=== PATIENT | male | born 1955 | race Caucasian/White ===

== ENCOUNTER 2023-06-27 12:09 | Inpatient (IN) ==
[2023-06-27 12:43] LABS: Basophils # (auto) 0.06 K/uL (0.00-0.20); Basophils % (auto) 1.2 %; Eosinophils # (auto) 0.34 K/uL (0.00-0.50); Eosinophils % (auto) 6.5 %; Hematocrit (blood only) 42.6 % (42.0-52.0); Hemoglobin 14.1 g/dl (14.0-18.0); Immature Granulocytes # (auto) 0.02 K/uL (0.01-0.20); Immature Granulocytes % (auto) 0.4 %; Lymphocytes # (auto) 1.31 K/uL (1.20-3.40); Lymphocytes % (auto) 25.2 %; Mean Corpuscular Hemoglobin 28.7 pg (25.0-34.0); Mean Corpuscular Hgb Conc 33.1 g/dL (32.0-36.0); Mean Corpuscular Volume 86.8 fL (80.0-100.0); Mean Platelet Volume 9.5 fL (9.4-12.4); Monocytes % (auto) 17.3 %; Neutrophils # (auto) 2.57 K/uL (1.40-6.50); Neutrophils % (auto) 49.4 %; Platelet Count 207 K/uL (130-400); RDW Coefficient of Variation 12.7 % (11.5-14.5); RDW Standard Deviation 40.1 fL (36.4-46.3); Red Blood Count 4.91 M/uL (4.70-6.10)
[2023-06-27 13:01] LABS: Alanine Aminotransferase 29 U/L (7-52); Albumin Globulin Ratio 1.7 (0.9-2); Albumin Level 4.5 gm/dl (3.4-5.0); Alkaline Phosphatase 81 U/L (34-104); Anion Gap 7 (3-11); Aspartate Aminotransferase 22 U/L (13-39); BUN Creatinine Ratio 14.3 (10-20); Bilirubin,Total 0.4 mg/dl (0.2-1.0); Blood Urea Nitrogen 15 mg/dl (6-23); Calcium 9.5 mg/dl (8.6-10.3); Carbon Dioxide 28 mmol/L (21-32); Chloride 103 mmol/L (98-107); Est GFR (African American) 84.7 ml/min; Est GFR (Non-African American) 73.1 ml/min; Globulin 2.7 gm/dl (2.5-4.0); Glucose 121 mg/dl (70-99(Fasting)); Lipase 22 U/L (11-82); Potassium 4.2 mmol/L (3.5-5.1); Sodium 138 mmol/L (136-145); Total Protein 7.2 gm/dl (6.0-8.3)
--- NOTE | 2023-06-27 13:55 | Emergency Department Note ---
ED Provider Note History of Present Illness Chief Complaint: Abdominal Pain Time Seen by Provider: 06/27/23 13:54 History obtained from the patient as well as his who is on the phone. This is a 67-year-old male who presents to the emergency department with 1 week of upper abdominal pain, vomiting after eating, decreased oral intake, generalized weakness, and concerned about falls. Patient states that he has pain in his upper abdomen region anytime he tries to eat. Sometimes this triggers him to vomit. He has not wanted to eat very much or drink fluids recently. At times he can feel like there is food getting caught in his chest. His thinks he is generally weak and he fell over about a week ago which concerned her. Patient states that he has been told by neurology that he has ataxia. states that he has been coughing more in the evening and at nighttime. Patient does not have any history of reflux that he is aware of. Patient has not had any abdominal surgeries. No shortness of breath or chest pain. No headaches. No vision changes. Aside from the dizziness, patient states that the above symptoms are new, no history of something like this in the past. Home Medications Medication Instructions Recorded Confirmed Type bupropion HCl 300 mg 24 hr tablet, 300 mg PO QAM 12/02/22 06/27/23 History extended release fluticasone propionate 50 1 spray intranasal DAILY 12/02/22 06/27/23 History mcg/actuation nasal spray,suspension loratadine 10 mg tablet (Allergy 10 mg PO DAILY 12/02/22 06/27/23 History Relief (loratadine)) methylphenidate HCl 5 mg tablet 5 mg PO BID 12/02/22 06/27/23 History metoprolol tartrate 50 mg tablet 50 mg PO BID 12/02/22 06/27/23 History omega 1-nji-ozj-fish oil 1,000 mg 1 cap PO DAILY 12/02/22 06/27/23 History (120 mg-180 mg) capsule (Fish Oil) potassium chloride 20 mEq 20 meq PO DAILY 12/02/22 06/27/23 History tablet,extended release sertraline 100 mg tablet 100 mg PO DAILY 12/02/22 06/27/23 History simvastatin 40 mg tablet 40 mg PO QPM 12/02/22 06/27/23 History tadalafil 20 mg tablet 20 mg PO DAILY PRN Sexual Activity 12/02/22 06/27/23 History Allergies Allergy/AdvReac Type Severity Reaction Status Date / Time No Known Allergies Allergy Verified 06/27/23 14:32 Past Med/Surg History Social History Smoking Status: Never smoker Hx Alcohol Use: No Hx Substance Use: No Preferred Language: Burkinan Communication Ability: Effective [employer]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 Beliefs That Will Affect Care: None Current Living Situation: Spouse Current Living Situation Comment: home with Feels Safe at Home: Yes Assistive Devices: CPAP, Denture - Upper, Denture - Lower, Glasses and Hearing Aid - Bilateral Physical Exam Vital Signs Vital Signs - 24 hr 06/27/23 12:15 06/27/23 14:02 06/27/23 14:26 Temperature 97.9 F Temperature Source Temporal Artery Scan Pulse Rate 60 54 L Pulse Rate [Apical] 60 Pulse Rhythm [Apical] Regular Pulse Strength [Apical] Normal Respiratory Rate 18 19 Respiratory Effort / Characteristics Non-Labored Spontaneous Non-Labored Spontaneous Respiratory Depth Normal Normal Respiratory Pattern Regular Regular Blood Pressure 121/79 Blood Pressure [Right Arm] 134/80 Blood Pressure Mean 93 Blood Pressure Mean [Right Arm] 98 Blood Pressure Position Sitting Pulse Oximetry 93 93 Oxygen Delivery Method Room Air Room Air Sepsis Recent Fever Within 48 Hours No Sepsis New/Unexplained Change in Mental Status N/A Sepsis Action Taken by Nursing No Action Required 06/27/23 15:00 06/27/23 15:04 06/27/23 15:30 Temperature Temperature Source Pulse Rate 54 L 57 L 56 L Pulse Rate [Apical] Pulse Rhythm [Apical] Pulse Strength [Apical] Respiratory Rate 13 26 H 24 Respiratory Effort / Characteristics Respiratory Depth Respiratory Pattern Blood Pressure 130/78 128/85 132/84 Blood Pressure [Right Arm] Blood Pressure Mean 95 99 100 Blood Pressure Mean [Right Arm] Blood Pressure Position Pulse Oximetry Oxygen Delivery Method Sepsis Recent Fever Within 48 Hours Sepsis New/Unexplained Change in Mental Status Sepsis Action Taken by Nursing 06/27/23 16:00 06/27/23 16:30 06/27/23 17:00 Temperature Temperature Source Pulse Rate 63 55 L 58 L Pulse Rate [Apical] Pulse Rhythm [Apical] Pulse Strength [Apical] Respiratory Rate 18 15 19 Respiratory Effort / Characteristics Respiratory Depth Respiratory Pattern Blood Pressure 127/88 133/87 130/87 Blood Pressure [Right Arm] Blood Pressure Mean 101 102 101 Blood Pressure Mean [Right Arm] Blood Pressure Position Pulse Oximetry Oxygen Delivery Method Sepsis Recent Fever Within 48 Hours Sepsis New/Unexplained Change in Mental Status Sepsis Action Taken by Nursing 06/27/23 17:30 06/27/23 18:00 06/27/23 18:30 Temperature Temperature Source Pulse Rate 55 L 53 L 57 L Pulse Rate [Apical] Pulse Rhythm [Apical] Pulse Strength [Apical] Respiratory Rate 17 12 18 Respiratory Effort / Characteristics Respiratory Depth Respiratory Pattern Blood Pressure 121/87 128/80 135/85 Blood Pressure [Right Arm] Blood Pressure Mean 98 96 101 Blood Pressure Mean [Right Arm] Blood Pressure Position Pulse Oximetry Oxygen Delivery Method Sepsis Recent Fever Within 48 Hours Sepsis New/Unexplained Change in Mental Status Sepsis Action Taken by Nursing 06/27/23 18:33 06/27/23 19:00 Temperature Temperature Source Pulse Rate 54 L 54 L Pulse Rate [Apical] Pulse Rhythm [Apical] Pulse Strength [Apical] Respiratory Rate 18 Respiratory Effort / Characteristics Respiratory Depth Respiratory Pattern Blood Pressure 144/123 H Blood Pressure [Right Arm] Blood Pressure Mean 130 Blood Pressure Mean [Right Arm] Blood Pressure Position Pulse Oximetry Oxygen Delivery Method Sepsis Recent Fever Within 48 Hours Sepsis New/Unexplained Change in Mental Status Sepsis Action Taken by Nursing CONSTITUTIONAL: Well developed, well nourished, in no acute distress resting comfortably on the stretcher. EYES: conjunctivae normal, extraocular muscles intact. ENMT: External ears normal. Nose with normal external appearance, no congestion. Oral mucous membranes moist. Oropharynx normal. NECK: Full active range of motion. RESPIRATORY: Breathing unlabored and symmetric. Lungs clear to auscultation bilaterally. No wheeze, rales, or rhonchi. CARDIOVASCULAR: Regular rate and rhythm. No murmurs, rubs, or gallops. CHEST: Minimal tenderness in the lower sternal region. ABDOMEN: Normal bowel sounds. Soft, mild tenderness in the umbilicus and epigastric regions. No peritonitis. No CVA tenderness bilaterally. MUSCULOSKELETAL: Moves all extremities at all joints without pain or difficulty. No cyanosis or edema. Back with full range of motion. SKIN: [place], warm, dry. NEUROLOGIC: Awake, alert, oriented. Gaze is conjugate. Face symmetric, speech normal. Moves head and all four extremities spontaneously. Sensation and strength grossly intact. PSYCHIATRIC: Appropriate. Normal affect Course Administered Medications Lactated Ringer's (Lr) 1,000 mls @ 80 mls/hr IV .[id number] RAJAN Stop: 06/29/23 09:59 Last Admin: 06/27/23 21:39 Dose: 80 mls/hr Documented By: JULIETTE Methylphenidate HCl (Methylphenidate Hcl 5 Mg Tablet) 5 mg PO BID RAJAN Stop: 07/11/23 21:21 Last Admin: 06/27/23 23:05 Dose: 5 mg Documented By: JULIETTE Metoprolol Tartrate (Metoprolol Tartrate 50 Mg Tab) 50 mg PO BID RAJAN Stop: 07/27/23 21:21 Last Admin: 06/27/23 23:05 Dose: 50 mg Documented By: JULIETTE Simvastatin (Simvastatin 40 Mg Tab) 40 mg PO QPM RAJAN Stop: 07/27/23 21:21 Last Admin: 06/27/23 23:05 Dose: 40 mg Documented By: JULIETTE Discontinued Medications Famotidine (Pepcid 20mg Iv Push) 20 mg in 5 mls @ 2.5 mls/min IV NOW STA Stop: 06/27/23 14:15 Last Admin: 06/27/23 14:24 Dose: 2.5 mls/min Documented By: SHAUNA Sodium Chloride (Nss) 500 mls @ 999 mls/hr IV .Q31M ONE Stop: 06/27/23 14:44 Last Infusion: 06/27/23 15:58 Dose: Infused Documented By: [facility]: 06/27/23 14:24 Dose: 999 mls/hr Documented By: SHAUNA Pantoprazole Sodium 40 mg/ (Syringe) 10 mls @ 5 mls/min IV NOW ONE Stop: 06/27/23 17:52 Last Admin: 06/27/23 18:26 Dose: 5 mls/min Documented By: JENNYFER Ioversol (Optiray 320 100ml) 91 ml IV ONCE ONE Stop: 06/27/23 14:56 Last Admin: 06/27/23 14:46 Dose: 91 ml Documented By: KIMBER Ondansetron HCl (Ondansetron Inj 2 Mg/Ml 2 Ml Vial) 4 mg IV NOW STA Stop: 06/27/23 14:15 Last Admin: 06/27/23 14:24 Dose: 4 mg Documented By: SHAUNA Medical Decision Making Differential Diagnosis Pancreatitis, GERD, esophagitis, reflux, peptic ulcer disease, esophageal stricture, cholecystitis, cholelithiasis, pneumonia, malignancy, effusion, electrolyte imbalance, anemia, doubt CHF, vertigo, ataxia, mass, hydrocephalus, among other pathology Laboratory Data 06/27/23 12:25 06/27/23 12:25 Lab Results 06/27/23 06/27/23 Range/Units 12:25 16:05 WBC 5.20 (4.8-10.8) K/ul RBC 4.91 (4.70-6.10) M/uL Hgb 14.1 (14.0-18.0) g/dl Hct 42.6 (42.0-52.0) % MCV 86.8 (80.0-100.0) fL MCH 28.7 (25.0-34.0) pg MCHC 33.1 (32.0-36.0) g/dL RDW Std Deviation 40.1 (36.4-46.3) fL RDW Coeff of Johanna 12.7 (11.5-14.5) % Plt Count 207 (130-400) K/uL MPV 9.5 (9.4-12.4) fL Immature Gran % (Auto) 0.4 % Neut % (Auto) 49.4 % Lymph % (Auto) 25.2 % Beckham % (Auto) 17.3 % Eos % (Auto) 6.5 % Baso % (Auto) 1.2 % Neut # (Auto) 2.57 (1.40-6.50) K/uL Lymph # (Auto) 1.31 (1.20-3.40) K/uL Beckham # (Auto) 0.90 H (0.11-0.59) K/uL Eos # (Auto) 0.34 (0.00-0.50) K/uL Baso # (Auto) 0.06 (0.00-0.20) K/uL Immature Gran # (Auto) 0.02 (0.01-0.20) K/uL Sodium 138 (136-145) mmol/L Potassium 4.2 (3.5-5.1) mmol/L Chloride 103 (98-107) mmol/L Carbon Dioxide 28 (21-32) mmol/L Anion Gap 7 (3-11) BUN 15 (6-23) mg/dl Creatinine 1.05 (0.6-1.4) mg/dl Est Cr Clr Drug Dosing Not Reportable Est GFR ( Amer) 84.7 ml/min Est GFR (Non-Af Amer) 73.1 ml/min BUN/Creatinine Ratio 14.3 (10-20) Glucose 121 H (70-99(Fasting)) mg/dl Calcium 9.5 (8.6-10.3) mg/dl Total Bilirubin 0.4 (0.2-1.0) mg/dl AST 22 (13-39) U/L ALT 29 (7-52) U/L Alkaline Phosphatase 81 (34-104) U/L Troponin I High Sens 2.5 (0-20) pg/ml Total Protein 7.2 (6.0-8.3) gm/dl Albumin 4.5 (3.4-5.0) gm/dl Globulin 2.7 (2.5-4.0) gm/dl Albumin/Globulin Ratio 1.7 (0.9-2) Lipase 22 (11-82) U/L Urine Color Yellow Urine Appearance Clear (Clear) Urine pH 5.5 (4.5-7.5) Ur Specific Bath > 1.045 H (1.000-1.030) Urine Protein Negative (Negative) Urine Glucose (UA) Negative (Negative) Urine Ketones Negative (Negative) Urine Blood Negative (Negative) Urine Nitrite Negative (Negative) Urine Bilirubin Negative (Negative) Urine Urobilinogen Negative (Negative) Ur Leukocyte Esterase Negative (Negative) Imaging Data Radiologist's Impression: Abdomen/Pelvis CT 06/27/23 14:[address] WITH IV CONTRAST CT DOSE: 3284.72 mGy.cm HISTORY: Acute epigastric abdominal pain with nausea and vomiting epigastric pain w eating, vomiting after food TECHNIQUE: Multiaxial CT images of the abdomen and pelvis were performed following the IV administration of 91 cc of Optiray, A dose lowering technique was utilized adhering to the principles of ALARA. COMPARISON STUDY: Chest CT of same day FINDINGS: Coronary artery calcifications. [id number] distal esophageal wall thickening with adjacent inflammatory stranding and subcentimeter lymph nodes. Mild bibasilar atelectasis versus scarring. No free air. Unremarkable spleen, pancreas and adrenal glands. The gallbladder and liver appear unremarkable. Patency of the hepatic and portal veins. No hydronephrosis. There are a few scattered bilateral renal cysts. 7 mm nonobstructing calculus of the inferior pole left kidney. No ureteral calculi or hydronephrosis. Prostatomegaly. Decompressed urinary bladder with wall thickening. Small fat filled left greater than right inguinal hernias with probable bilateral varicoceles. No abdominal aortic aneurysm or pathologically enlarged lymph nodes. No bowel obstruction or bowel wall thickening. Colonic diverticulosis. Mild to moderate colonic fecal retention. Normal appendix. Tiny fat filled umbilical hernia. Multilevel annular disc bulging of the lumbar spine with associated central canal and neural foraminal narrowing. No acute fracture. IMPRESSION: 1. Findings suggestive of distal esophagitis. Correlation with GI consult and endoscopy recommended. 2. No bowel obstruction or bowel wall thickening. 3. Colonic diverticulosis. 4. Left nephrolithiasis. 5. Additional findings as above. ACT 112: Negative or not required by law. The above report was generated using voice recognition software. It may contain grammatical, syntax or spelling errors. Electronically signed by: Mert Andrea M.D. 06/27/2023 3:[address] 06/27/23 14:[address] WITH CONTRAST CT DOSE: HISTORY: epigastric pain w eating, vomiting after food TECHNIQUE: Multiaxial CT images of the chest were performed following the intravenous administration of contrast. A dose lowering technique was utilized adhering to the principles of ALARA. COMPARISON: None. FINDINGS: The thyroid gland enhances normally. Normal caliber thoracic aorta with no evidence for a dissection. The central pulmonary arteries are patent. The heart is normal in size. Mild coronary artery calcifications are noted. No pleural or pericardial effusions. The abdominal structures will be reported on the same day abdomen and pelvis CT. There is mild to moderate circumferential thickening of the distal esophagus. No paraesophageal lymphadenopathy identified. Subcentimeter mediastinal and bilateral hilar lymph nodes do not meet CT criteria for pathologic involvement. No suspicious lytic or blastic osseous lesions. No evidence for pneumomediastinum. No pneumothorax. The central airways are patent. Mild dependent changes seen within the lung bases. Otherwise, no focal lung consolidations to suggest a pneumonia. No evidence for pulmonary edema. IMPRESSION: Mild to moderate circumferential thickening of the distal esophagus. This favors an esophagitis. Follow-up nonemergent endoscopy recommended for confirmation. ACT 112: Negative or not required by law. Electronically signed by: Farhad Sargent M.D. 06/27/2023 3:[address] 06/27/23 14:22 CT head/brain wo con CLINICAL HISTORY: 67 years-old Male with recent falls, weakness. Acute head trauma status post fall TECHNIQUE: Multiple axial CT images of the head were obtained without contrast. A dose lowering technique was utilized adhering to the principles of ALARA. COMPARISON: None. FINDINGS: No acute intracranial hemorrhage, midline shift, intracranial mass, hydrocephalus, territorial ischemia or abnormal extra-axial collection. Calcifications of the falx cerebri. Involutional changes with chronic microvascular ischemic disease. Right frontal lobe encephalomalacia with cortical calcifications. The calvarium is intact. Minimal mucosal thickening of the ethmoid air cells. Prior bilateral lens repair. Trace mastoid effusions. IMPRESSION: 1. No acute intracranial abnormality or calvarial fracture. 2. Involutional changes with chronic microvascular ischemic disease. 3. Right frontal lobe encephalomalacia. ACT 112: Negative or not required by law. The above report was generated using voice recognition software. It may contain grammatical, syntax or spelling errors. Electronically signed by: Mert Andrea M.D. 06/27/2023 3:15 PM MDM Narrative This is a 67-year-old male who presents to the emergency department with multiple symptoms over the past week including upper abdominal discomfort, pain in his epigastric region when he eats or drinks and some vomiting after eating. Also with a cough at nighttime, concerned about generalized weakness and several falls recently. See above for further details. Patient resting comfortably on the stretcher. O2 saturation 93% on room air, history of similar. Remainder of vitals are unremarkable. He has some very minimal discomfort in the central epigastric region though no focal tenderness. Case reviewed with ED attending Dr. Bejarano. IV was inserted and labs were obtained. Patient was given Zofran and Pepcid and gentle IV fluids. CT head, chest, abdomen pelvis obtained. EKG: Sinus rhythm rate of 63. First-degree AV block AK interval 222. Remainder of intervals within normal limits. No prior to compare. No acute ST elevation or evidence of ischemia. Labs: No leukocytosis or anemia. Normal renal function. No electrolyte disturbance. No transaminitis. Troponin normal. CT head demonstrates some chronic changes, reviewed with Dr. Bejarano. CT abdomen pelvis shows thickening of the distal esophagus consistent with esophagitis. Clinically this does match the patient's symptoms as described above. I called and spoke with Dr. Mullins (gastroenterology on-call) who agrees the patient will require an EGD and recommends a PPI. Given the patient's ongoing symptoms with generalized weakness, inability to tolerate p.o., will admit him to the hospitalist with GI consult. Patient comfortable with this plan. Case reviewed with ED attending Dr. Bejarano who is agreeable with this plan. Spoke with Dr. Rajan (hospitalist, [facility]) who agrees to admit the patient. Impression Esophagitis, Generalized weakness Discharge Plan Visit Data Chief Complaint: Abdominal Pain ED Provider: Jatinder Bejarano ED Midlevel Provider: Manish Lal Discharge Problem: Esophagitis, Generalized weakness Patient Disposition: Admitted As Inpatient Condition: Good Discharge Instructions Interventions: ED Discharge Assessment Last Done: 06/27/23 22:17
[2023-06-27] MEDS: ONDANSETRON INJ 2 MG/ML 2 ML VIAL IV STA (14:24)
[2023-06-27] MEDS: FAMOTIDINE 20MG IV PUSH 20 MG/5 ML SYR IV STA (14:24)
[2023-06-27] MEDS: SODIUM CHLORIDE 0.9% 500 ML IV ONE (14:24)
[2023-06-27 14:28] LABS: Troponin I High Sensitivity 2.5 pg/ml (0-20)
[2023-06-27] MEDS: OPTIRAY 320 100ml IV ONE (14:46)
--- NOTE | 2023-06-27 15:17 | CT Scan Report ---
CHEST CT WITH CONTRAST CT DOSE: HISTORY: epigastric pain w eating, vomiting after food TECHNIQUE: Multiaxial CT images of the chest were performed following the intravenous administration of contrast. A dose lowering technique was utilized adhering to the principles of ALARA. COMPARISON: None. FINDINGS: The thyroid gland enhances normally. Normal caliber thoracic aorta with no evidence for a d issection. The central pulmonary arteries are patent. The heart is normal in size. Mild coronary ernst ry calcifications are noted. No pleural or pericardial effusions. The abdominal structures will be re ported on the same day abdomen and pelvis CT. There is mild to moderate circumferential thickening of the distal esophagus. No paraesophageal lymphadenopathy identified. Subcentimeter mediastinal and bi lateral hilar lymph nodes do not meet CT criteria for pathologic involvement. No suspicious lytic or blastic osseous lesions. No evidence for pneumomediastinum. No pneumothorax. The central airways are patent. Mild dependent changes seen within the lung bases. Otherwise, no focal lung consolidations to suggest a pneumonia. No evidence for pulmonary edema. IMPRESSION: Mild to moderate circumferential thickening of the distal esophagus. This favors an esophagitis. Foll ow-up nonemergent endoscopy recommended for confirmation. ACT 112: Negative or not required by law. Electronically signed by: Farhad Sargent M.D. 06/27/2023 3:16 PM
--- NOTE | 2023-06-27 15:17 | CT Scan Report ---
CT head/brain wo con CLINICAL HISTORY: 67 years-old Male with recent falls, weakness. Acute head trauma status post fall TECHNIQUE: Multiple axial CT images of the head were obtained without contrast. A dose lowering tech nique was utilized adhering to the principles of ALARA. COMPARISON: None. FINDINGS: No acute intracranial hemorrhage, midline shift, intracranial mass, hydrocephalus, territorial ischem ia or abnormal extra-axial collection. Calcifications of the falx cerebri. Involutional changes with chronic microvascular ischemic disease. Right frontal lobe encephalomalacia with cortical calcificati ons. The calvarium is intact. Minimal mucosal thickening of the ethmoid air cells. Prior bilateral lens r epair. Trace mastoid effusions. IMPRESSION: 1. No acute intracranial abnormality or calvarial fracture. 2. Involutional changes with chronic microvascular ischemic disease. 3. Right frontal lobe encephalomalacia. ACT 112: Negative or not required by law. The above report was generated using voice recognition software. It may contain grammatical, syntax o r spelling errors. Electronically signed by: Mert Andrea M.D. 06/27/2023 3:15 PM
--- NOTE | 2023-06-27 15:30 | CT Scan Report ---
ABDOMEN AND PELVIS CT WITH IV CONTRAST CT DOSE: 3284.72 mGy.cm HISTORY: Acute epigastric abdominal pain with nausea and vomiting epigastric pain w eating, vomiting after food TECHNIQUE: Multiaxial CT images of the abdomen and pelvis were performed following the IV administrat ion of 91 cc of Optiray, A dose lowering technique was utilized adhering to the principles of ALARA. COMPARISON STUDY: Chest CT of same day FINDINGS: Coronary artery calcifications. [id number] distal esophageal wall thickening with adj acent inflammatory stranding and subcentimeter lymph nodes. Mild bibasilar atelectasis versus scarrin g. No free air. Unremarkable spleen, pancreas and adrenal glands. The gallbladder and liver appear unremarkable. Luke ncy of the hepatic and portal veins. No hydronephrosis. There are a few scattered bilateral renal cys ts. 7 mm nonobstructing calculus of the inferior pole left kidney. No ureteral calculi or hydronephro sis. Prostatomegaly. Decompressed urinary bladder with wall thickening. Small fat filled left greater than right inguinal hernias with probable bilateral varicoceles. No abdominal aortic aneurysm or pat hologically enlarged lymph nodes. No bowel obstruction or bowel wall thickening. Colonic diverticulosis. Mild to moderate colonic fecal retention. Normal appendix. Tiny fat filled umbilical hernia. Multilevel annular disc bulging of the lumbar spine with associated central canal and neural foraminal narrowing. No acute fracture. IMPRESSION: 1. Findings suggestive of distal esophagitis. Correlation with GI consult and endoscopy recommended. 2. No bowel obstruction or bowel wall thickening. 3. Colonic diverticulosis. 4. Left nephrolithiasis. 5. Additional findings as above. ACT 112: Negative or not required by law. The above report was generated using voice recognition software. It may contain grammatical, syntax o r spelling errors. Electronically signed by: Mert Andrea M.D. 06/27/2023 3:28 PM
[2023-06-27 16:33] LABS: Appearance Urine Clear (Clear); Bilirubin Urine Negative (Negative); Blood Urine Negative (Negative); Color Urine Yellow; Glucose Urine UA Negative (Negative); Ketones Urine Negative (Negative); Leukocyte Esterase Urine Negative (Negative); Nitrite Urine Negative (Negative); Protein Urine Negative (Negative); Specific Gravity Urine > 1.045 (1.000-1.030); Urobilinogen Urine Negative (Negative); pH Urine 5.5 (4.5-7.5)
[2023-06-27] MEDS: PANTOprazole 40 MG in SYRINGE 0 ML IV ONE (18:26)
--- NOTE | 2023-06-27 19:18 | History & Physical Report ---
Date of Service June 27, 2023 Assessment & Plan (1) Esophagitis: Plan: -1.5 weeks of epigastric pain with vomiting. -Only pertinent past history is gastritis when younger. -CT A&P and chest with evidence of distal esophagits. -Will continue on 40mg IV Protonix and 20mg IV famotidine daily. -Consulted GI, appreciate recommendations. -Will keep NPO after midnight in case of endoscopy. -Admit to med/surg (2) Generalized weakness: Plan: -Patient with [facility] -[facility] head without any acute abnormalities, involutional changes with chronic microvascular ischemic disease, R frontal lobe encephalomalacia (3) ADHD: Plan: -Continue home methylphenidate (4) HTN (hypertension): Plan: -continue home metoprolol tartrate 50mg BID. (5) HLD (hyperlipidemia): Plan: Continue home simvastatin (6) Asthma: Plan: -No current exacerbation. (7) Depression: Plan: -Continue home bupropion and sertraline. (8) Prediabetes: Plan: -ACHS glucose checks, no need for insulin coverage unless hyperglycemic. Plan F/E/N/GI: Clear liquid, NPO after midnight. DVT Prophylaxis: SCDs Codes status: Full code, patient would want called in case needs resuscitative measures - Sheron [phone] Dispo: Med/surg, possible EGD for more diagnostic clarity. History of Present Illness Chief Complaint: Epigastric pain Primary Care Provider: Fatemeh Auguste PA-C Corey is a 67 year old male w/ past medical history of gastritis, ADHD, HTN, HLD, hypertensive retinopathy, asthma, depressive, narcolepsy, prediabetes coming in for 1.5 weeks of epigastric pain. Patient states that over the past 1.5 weeks he has had epigastric pain that started as intense 7/10 pain along with NBNB vomiting every day and most meals. He states that the pain did not ra diate and was a pressure type pain. He eventually got used to the pain as the week went on and has not had as much vomiting. He last vomited on Monday and was okay over the weekend. He states that his was concerned with the progression of symptoms and implored him to get checked out and so he came to the ER. He denies any fevers, chills, shortness of breath, diarrhea, constipation, any prior GI issues other than gastritis. In the ER CBC, CMP, lipase, U/A negative. CT head without acute process, involutional changes with chronic microvascular ischemic disease, R frontal lobe encephalomalacia. CT Chest mild to moderate circumferential thickening of distal esophagus. CT A&P suggestive of distal esophagitis, colonic diverticulosis, L nephrolithiasis. Given pantoprazole 40mg IV, famotidine 20mg IV, Zofran IV, NSS 500ml. Allergies Allergy/AdvReac Type Severity Reaction Status Date / Time No Known Allergies Allergy Verified 06/27/23 14:32 Home Medications Medication Instructions Recorded Confirmed Type bupropion HCl 300 mg 24 hr tablet, 300 mg PO QAM 12/02/22 06/27/23 History extended release fluticasone propionate 50 1 spray intranasal DAILY 12/02/22 06/27/23 History mcg/actuation nasal spray,suspension loratadine 10 mg tablet (Allergy 10 mg PO DAILY 12/02/22 06/27/23 History Relief (loratadine)) methylphenidate HCl 5 mg tablet 5 mg PO BID 12/02/22 06/27/23 History metoprolol tartrate 50 mg tablet 50 mg PO BID 12/02/22 06/27/23 History omega 0-zep-iod-fish oil 1,000 mg 1 cap PO DAILY 12/02/22 06/27/23 History (120 mg-180 mg) capsule (Fish Oil) potassium chloride 20 mEq 20 meq PO DAILY 12/02/22 06/27/23 History tablet,extended release sertraline 100 mg tablet 100 mg PO DAILY 12/02/22 06/27/23 History simvastatin 40 mg tablet 40 mg PO QPM 12/02/22 06/27/23 History tadalafil 20 mg tablet 20 mg PO DAILY PRN Sexual Activity 12/02/22 06/27/23 History Past Med/Surg History Social History Smoking Status: Never smoker Preferred Language: Arabic Feels Safe at Home: Yes Review of Systems Review of Systems: As per HPI. Physical Exam Constitutional: WD/WN, vitals as above Eyes: PERRL, conjunctivae normal, anicteric sclerae Respiratory: normal respiratory effort, lungs clear to auscultation Cardiovascular: RRR, no murmur, no edema Gastrointestinal (Abdomen): BS+, soft, non-distended, tender to palpation in epigastric. Skin: no rashes, warm and dry Psychiatric: A+Ox3, euthymic affect Results & Data Results & Data Vital Signs (Past 12 Hours) Vital Signs Temp Pulse Pulse Resp BP BP Pulse Ox 06/27/23 18:33 54 L 06/27/23 16:00 63 18 127/88 06/27/23 15:30 56 L 24 132/84 06/27/23 15:04 57 L 26 H 128/85 06/27/23 15:00 54 L 13 130/78 06/27/23 14:26 60 19 134/80 93 06/27/23 14:02 54 L 06/27/23 12:15 36.6 C 60 18 121/79 93 O2 Del Method 06/27/23 18:33 06/27/23 16:00 06/27/23 15:30 06/27/23 15:04 06/27/23 15:00 06/27/23 14:26 Room Air 06/27/23 14:02 06/27/23 12:15 Room Air Supervising Physician Co-Signing Physician Notes Patient seen and examined, chart reviewed, case discussed with DR. Gates and I agree with the assessment and plan as above except as otherwise noted Labs and images reviewed Mr. Najera is a 67yo M who presents after he developed worsening epigastric pain 10/24 ~2 weeks ago. INtermitted and worse with food. Minimal improvement with milk/pepto bismol. Did have some nonbloody, nonmelanic emisis multiple times with attempted meals. Last vomiiting was yesterday. CT-A?P with evidence of distal esophagitis, GI consulted for evaluation and endoscopy. NPO. Pt denies other past GI issues. Hemodynamically stable and nontoxic at bedside. No FILEMON. PPI, pepcid, and IVFM continued. Agree w/ above Resident Activity Tracking Resident Involvement: Resident Care Provided Care Provided: Adult [facility] Medicine
--- NOTE | 2023-06-27 20:35 | Billing Data ---
Date of Service June 27, 2023 Coding Level of Care Code 05408 INT INP/OBS CARE
[2023-06-27] MEDS ORDERED: CARBOHYDRATES FOR HYPOGLYCEMIA PO PRN (21:22)
[2023-06-27] MEDS ORDERED: GLUCOSE 40% GEL 15 GM TUBE PO PRN (21:22)
[2023-06-27] MEDS ORDERED: DEXTROSE 50% 50 ML SYRINGE IV PRN (21:22)
[2023-06-27] MEDS ORDERED: ACETAMINOPHEN 325 MG TAB PO PRN (21:22)
[2023-06-27] MEDS ORDERED: ONDANSETRON INJ 2 MG/ML 2 ML VIAL IV PRN (21:22)
[2023-06-27] MEDS ORDERED: GLUCAGON FOR INJ 1 MG VIAL SQ PRN (21:22)
[2023-06-27] MEDS ORDERED: GLUCOSE 10 TAB/TUBE PO PRN (21:22)
[2023-06-27] MEDS ORDERED: MELATONIN 3 MG TAB PO PRN (21:22)
[2023-06-27] MEDS: LACTATED RINGER'S 1,000 ML IV SCH (21:39)
[2023-06-27] MEDS: METOPROLOL TARTRATE 50 MG TAB PO SCH (23:05)
[2023-06-27] MEDS: SIMVASTATIN 40 MG TAB PO SCH (23:05)
[2023-06-27] MEDS: METHYLPHENIDATE HCL 5 MG TABLET PO SCH (23:05)
[2023-06-28] MEDS: POTASSIUM CHLORIDE CRTAB 20 MEQ TABCR PO SCH (08:37)
[2023-06-28] MEDS: buPROPion XL 300 MG TABCR PO SCH (08:37)
[2023-06-28] MEDS: LORATADINE 10 MG TAB PO SCH (08:37)
[2023-06-28] MEDS: SERTRALINE HCL 100 MG TABLET PO SCH (08:37)
[2023-06-28] MEDS: FLUTICASONE PROPIONATE NA SPR 16 GM BTL SCH (08:40)
[2023-06-28] MEDS: FAMOTIDINE 20MG IV PUSH 20 MG/5 ML SYR IV SCH (08:44)
[2023-06-28 09:32] LABS: Basophils # (auto) 0.06 K/uL (0.00-0.20); Basophils % (auto) 1.2 %; Eosinophils # (auto) 0.38 K/uL (0.00-0.50); Eosinophils % (auto) 7.7 %; Hematocrit (blood only) 40.1 % (42.0-52.0); Hemoglobin 13.1 g/dl (14.0-18.0); Immature Granulocytes # (auto) 0.01 K/uL (0.01-0.20); Immature Granulocytes % (auto) 0.2 %; Lymphocytes # (auto) 1.34 K/uL (1.20-3.40); Mean Corpuscular Hemoglobin 28.8 pg (25.0-34.0); Mean Corpuscular Hgb Conc 32.7 g/dL (32.0-36.0); Mean Corpuscular Volume 88.1 fL (80.0-100.0); Mean Platelet Volume 9.7 fL (9.4-12.4); Monocytes % (auto) 14.1 %; Neutrophils # (auto) 2.47 K/uL (1.40-6.50); Neutrophils % (auto) 49.8 %; Platelet Count 177 K/uL (130-400); RDW Coefficient of Variation 12.6 % (11.5-14.5); RDW Standard Deviation 40.4 fL (36.4-46.3); Red Blood Count 4.55 M/uL (4.70-6.10); White Blood Count 4.96 K/ul (4.8-10.8)
[2023-06-28 09:56] LABS: BUN Creatinine Ratio 12.7 (10-20); Calcium 8.9 mg/dl (8.6-10.3); Creatinine Clr Calc Pharmacy 79.4 ml/min; Est GFR (African American) 87.7 ml/min; Est GFR (Non-African American) 75.7 ml/min; Potassium 4.3 mmol/L (3.5-5.1)
[2023-06-28] MEDS: PANTOprazole 40 MG in SYRINGE 0 ML IV SCH (11:31)
--- NOTE | 2023-06-28 14:51 | Hospitalist Progress Note ---
Date of Service June 28, 2023 Assessment & Plan (1) Esophagitis: Plan: -1.5 weeks of epigastric pain with vomiting. -Only pertinent past history is gastritis when younger. -CT A&P and chest with evidence of distal esophagitis. -Continue on 40mg IV Protonix and 20mg IV famotidine daily. -Consulted GI, appreciate recommendations - plan for EGD today (2) Generalized weakness: Plan: -Patient with [facility] -[facility] head without any acute abnormalities, involutional changes with chronic microvascular ischemic disease, R frontal lobe encephalomalacia (3) ADHD: Plan: -Continue home methylphenidate (4) HTN (hypertension): Plan: -continue home metoprolol tartrate 50mg BID. (5) HLD (hyperlipidemia): Plan: Continue home simvastatin (6) Depression: Plan: -Continue home bupropion and sertraline. (7) Prediabetes: Plan: -ACHS glucose checks, no need for insulin coverage unless hyperglycemic. (8) Kidney stone: Plan: 7mm Left sided stone - seen on CT - patient made aware, asymptomatic Plan DVT Prophylaxis: SCDs dispo: continued inpatent stay, pending EGD results Admission and Anticipated Discharge Date Admission Date: June 27, 2023 Supervising Physician Co-Signing Physician Notes Attending Attestation - Chart reviewed, care plan d/w FLORES Dahl. I agree w/ the hernandes components of her documentation. EGD findings noted - severe esophagitis but w/o active bleeding. Campbell Mc MD Subjective PAtient seen sitting up in bed. Reports long hx of occasional heartburn, takes pepto bismol occasionally. Pain has been well controlled while he has not been eating. Does report feeling of his food getting stuck in his throat a few times over the last week. Has not been seen by GI at the time of my visit, but it does appear that he will be getting n EGD today Review of Systems Review of Systems: All systems reviewed & are unremarkable except as noted in Subjective Physical Exam Physical Exam: General: NAD, VS as above Resp: normal respiratory effort, lungs clear to auscultation CV: RRR, no murmur, Abd: normal bowel sounds, non tender, no hepatosplenomegaly Extremities: Moves all extremities, no edema Neuro: A&O x3, Skin: intact, no lesions noted Results & Data Results & Data Vital Signs (Past 12 Hours) Vital Signs Temp Pulse Resp BP Pulse Ox O2 Del Method 06/28/23 14:31 35.8 C L 51 L 16 150/80 H 96 Room Air 06/28/23 08:00 Room Air 06/28/23 07:33 36.3 C L 50 L 16 124/65 96 Room Air Laboratory Results CBC chemistry reviewed Diagnostic Findings CT reviewed PG Care Time/CCT Total # of Minutes Spent Total Time Spent with Patient: Total time spent is greater than 50% in coordination of care (as documented) at patient's floor/unit and/or counseling patient: Coding Level of Care Code 07966 SUB INP/OBS CARE 2/35MIN Diagnoses Esophagitis K20.90 Generalized weakness R53.1 ADHD F90.9 HTN (hypertension) I10 HLD (hyperlipidemia) E78.5 Depression F32.A Prediabetes R73.03 Kidney stone N20.0
--- NOTE | 2023-06-28 15:04 | Gastrointestinal Consultation ---
Date of Consultation June 28, 2023 Assessment & Plan (1) Esophagitis: Pleasant man with chest and abdominal pain that has a thickened esophagus on CT scan. I plan to do EGD. Procedure and risks discussed he agrees History of Present Illness Reason for Consultation: chest pain Attending Physician: Campbell Mc MD History of Present Illness 67 year old man with chest pain, esophagitis on CT scan. This has been going on for a few days but getting worse. Was at the [place] [facility] yesterday and they sent him here. He has no other chronic GI issues. He was vomiting but that has slowed down. He hasn't been eating much because he can't Allergies Allergy/AdvReac Type Severity Reaction Status Date / Time No Known Allergies Allergy Verified 06/28/23 14:36 Home Medications Medication Instructions Recorded Confirmed Type bupropion HCl 300 mg 24 hr tablet, 300 mg PO QAM 12/02/22 06/27/23 History extended release fluticasone propionate 50 1 spray intranasal DAILY 12/02/22 06/27/23 History mcg/actuation nasal spray,suspension loratadine 10 mg tablet (Allergy 10 mg PO DAILY 12/02/22 06/27/23 History Relief (loratadine)) methylphenidate HCl 5 mg tablet 5 mg PO BID 12/02/22 06/27/23 History metoprolol tartrate 50 mg tablet 50 mg PO BID 12/02/22 06/27/23 History omega 9-mic-ozb-fish oil 1,000 mg 1 cap PO DAILY 12/02/22 06/27/23 History (120 mg-180 mg) capsule (Fish Oil) potassium chloride 20 mEq 20 meq PO DAILY 12/02/22 06/27/23 History tablet,extended release sertraline 100 mg tablet 100 mg PO DAILY 12/02/22 06/27/23 History simvastatin 40 mg tablet 40 mg PO QPM 12/02/22 06/27/23 History tadalafil 20 mg tablet 20 mg PO DAILY PRN Sexual Activity 12/02/22 06/27/23 History Patient History Social History Smoking Status: Never smoker Hx Alcohol Use: No Hx Substance Use: No Preferred Language: Tajik Communication Ability: Effective Negotiations Director Required: No Beliefs That Will Affect Care: None Current Living Situation: Spouse Current Living Situation Comment: home with Feels Safe at Home: Yes Assistive Devices: Crutches Review of Systems Review of Systems: All systems reviewed & are unremarkable except as noted in HPI & below Physical Exam Constitutional: WD/WN, vitals as above Eyes: PERRL, conjunctivae normal, anicteric sclerae Neck: trachea midline, no thyromegaly Respiratory: normal respiratory effort, lungs clear to auscultation Cardiovascular: RRR, no murmur, no edema Gastrointestinal (Abdomen): normal bowel sounds, soft, nontender, no hepatosplenomegaly Musculoskeletal: Extremities: extremities normal to inspection Results & Data Vital Signs (Past 12 Hours) Vital Signs Temp Pulse Resp BP Pulse Ox O2 Del Method 06/28/23 14:31 35.8 C L 51 L 16 150/80 H 96 Room Air 06/28/23 08:00 Room Air 06/28/23 07:33 36.3 C L 50 L 16 124/65 96 Room Air Laboratory Results 06/28/23 06/28/23 06/28/23 Range/Units 11:47 08:42 07:48 WBC 4.96 (4.8-10.8) K/ul RBC 4.55 L (4.70-6.10) M/uL Hgb 13.1 L (14.0-18.0) g/dl Hct 40.1 L (42.0-52.0) % MCV 88.1 (80.0-100.0) fL MCH 28.8 (25.0-34.0) pg MCHC 32.7 (32.0-36.0) g/dL RDW Std Deviation 40.4 (36.4-46.3) fL RDW Coeff of Johanna 12.6 (11.5-14.5) % Plt Count 177 (130-400) K/uL MPV 9.7 (9.4-12.4) fL Immature Gran % (Auto) 0.2 % Neut % (Auto) 49.8 % Lymph % (Auto) 27.0 % [place] % (Auto) 14.1 % Eos % (Auto) 7.7 % Baso % (Auto) 1.2 % Neut # (Auto) 2.47 (1.40-6.50) K/uL Lymph # (Auto) 1.34 (1.20-3.40) K/uL [place] # (Auto) 0.70 H (0.11-0.59) K/uL Eos # (Auto) 0.38 (0.00-0.50) K/uL Baso # (Auto) 0.06 (0.00-0.20) K/uL Immature Gran # (Auto) 0.01 (0.01-0.20) K/uL Sodium 138 (136-145) mmol/L Potassium 4.3 (3.5-5.1) mmol/L Chloride 103 (98-107) mmol/L Carbon Dioxide 30 (21-32) mmol/L Anion Gap 5 (3-11) BUN 13 (6-23) mg/dl Creatinine 1.02 (0.6-1.4) mg/dl Est Cr Clr Drug Dosing 79.4 ml/min Est GFR ( Amer) 87.7 ml/min Est GFR (Non-Af Amer) 75.7 ml/min BUN/Creatinine Ratio 12.7 (10-20) Glucose 79 (70-99(Fasting)) mg/dl POC Glucose 78 83 (70-99) mg/dl Calcium 8.9 (8.6-10.3) mg/dl Urine Color Urine Appearance (Clear) Urine pH (4.5-7.5) Ur Specific [place] (1.000-1.030) Urine Protein (Negative) Urine Glucose (UA) (Negative) Urine Ketones (Negative) Urine Blood (Negative) Urine Nitrite (Negative) Urine Bilirubin (Negative) Urine Urobilinogen (Negative) Ur Leukocyte Esterase (Negative) 06/28/23 06/27/23 06/27/23 Range/Units 06:32 22:20 16:05 WBC (4.8-10.8) K/ul RBC (4.70-6.10) M/uL Hgb (14.0-18.0) g/dl Hct (42.0-52.0) % MCV (80.0-100.0) fL MCH (25.0-34.0) pg MCHC (32.0-36.0) g/dL RDW Std Deviation (36.4-46.3) fL RDW Coeff of Johanna (11.5-14.5) % Plt Count (130-400) K/uL MPV (9.4-12.4) fL Immature Gran % (Auto) % Neut % (Auto) % Lymph % (Auto) % [place] % (Auto) % Eos % (Auto) % Baso % (Auto) % Neut # (Auto) (1.40-6.50) K/uL Lymph # (Auto) (1.20-3.40) K/uL [place] # (Auto) (0.11-0.59) K/uL Eos # (Auto) (0.00-0.50) K/uL Baso # (Auto) (0.00-0.20) K/uL Immature Gran # (Auto) (0.01-0.20) K/uL Sodium (136-145) mmol/L Potassium (3.5-5.1) mmol/L Chloride (98-107) mmol/L Carbon Dioxide (21-32) mmol/L Anion Gap (3-11) BUN (6-23) mg/dl Creatinine (0.6-1.4) mg/dl Est Cr Clr Drug Dosing ml/min Est GFR ( Amer) ml/min Est GFR (Non-Af Amer) ml/min BUN/Creatinine Ratio (10-20) Glucose (70-99(Fasting)) mg/dl POC Glucose 82 92 (70-99) mg/dl Calcium (8.6-10.3) mg/dl Urine Color Yellow Urine Appearance Clear (Clear) Urine pH 5.5 (4.5-7.5) Ur Specific [place] > 1.045 H (1.000-1.030) Urine Protein Negative (Negative) Urine Glucose (UA) Negative (Negative) Urine Ketones Negative (Negative) Urine Blood Negative (Negative) Urine Nitrite Negative (Negative) Urine Bilirubin Negative (Negative) Urine Urobilinogen Negative (Negative) Ur Leukocyte Esterase Negative (Negative) Diagnostic Findings Abdomen/Pelvis CT 06/27/23 14:[address] WITH IV CONTRAST CT DOSE: 3284.72 mGy.cm HISTORY: Acute epigastric abdominal pain with nausea and vomiting epigastric pain w eating, vomiting after food TECHNIQUE: Multiaxial CT images of the abdomen and pelvis were performed following the IV administration of 91 cc of Optiray, A dose lowering technique was utilized adhering to the principles of ALARA. COMPARISON STUDY: Chest CT of same day FINDINGS: Coronary artery calcifications. [id number] distal esophageal wall thickening with adjacent inflammatory stranding and subcentimeter lymph nodes. Mild bibasilar atelectasis versus scarring. No free air. Unremarkable spleen, pancreas and adrenal glands. The gallbladder and liver appear unremarkable. Patency of the hepatic and portal veins. No hydronephrosis. There are a few scattered bilateral renal cysts. 7 mm nonobstructing calculus of the inferior pole left kidney. No ureteral calculi or hydronephrosis. Prostatomegaly. Decompressed urinary bladder with wall thickening. Small fat filled left greater than right inguinal hernias with probable bilateral varicoceles. No abdominal aortic aneurysm or pathologically enlarged lymph nodes. No bowel obstruction or bowel wall thickening. Colonic diverticulosis. Mild to moderate colonic fecal retention. Normal appendix. Tiny fat filled umbilical hernia. Multilevel annular disc bulging of the lumbar spine with associated central canal and neural foraminal narrowing. No acute fracture. IMPRESSION: 1. Findings suggestive of distal esophagitis. Correlation with GI consult and endoscopy recommended. 2. No bowel obstruction or bowel wall thickening. 3. Colonic diverticulosis. 4. Left nephrolithiasis. 5. Additional findings as above. ACT 112: Negative or not required by law. The above report was generated using voice recognition software. It may contain grammatical, syntax or spelling errors. Electronically signed by: Mert Andrea M.D. 06/27/2023 3:[address] 06/27/23 14:[address] WITH CONTRAST CT DOSE: HISTORY: epigastric pain w eating, vomiting after food TECHNIQUE: Multiaxial CT images of the chest were performed following the intravenous administration of contrast. A dose lowering technique was utilized adhering to the principles of ALARA. COMPARISON: None. FINDINGS: The thyroid gland enhances normally. Normal caliber thoracic aorta with no evidence for a dissection. The central pulmonary arteries are patent. The heart is normal in size. Mild coronary artery calcifications are noted. No pleural or pericardial effusions. The abdominal structures will be reported on the same day abdomen and pelvis CT. There is mild to moderate circumferential thickening of the distal esophagus. No paraesophageal lymphadenopathy identified. Subcentimeter mediastinal and bilateral hilar lymph nodes do not meet CT criteria for pathologic involvement. No suspicious lytic or blastic osseous lesions. No evidence for pneumomediastinum. No pneumothorax. The central airways are patent. Mild dependent changes seen within the lung bases. Otherwise, no focal lung consolidations to suggest a pneumonia. No evidence for pulmonary edema. IMPRESSION: Mild to moderate circumferential thickening of the distal esophagus. This favors an esophagitis. Follow-up nonemergent endoscopy recommended for confirmation. ACT 112: Negative or not required by law. Electronically signed by: Farhad Sargent M.D. 06/27/2023 3:[address] 06/27/23 14:22 CT head/brain wo con CLINICAL HISTORY: 67 years-old Male with recent falls, weakness. Acute head trauma status post fall TECHNIQUE: Multiple axial CT images of the head were obtained without contrast. A dose lowering technique was utilized adhering to the principles of ALARA. COMPARISON: None. FINDINGS: No acute intracranial hemorrhage, midline shift, intracranial mass, hydrocephalus, territorial ischemia or abnormal extra-axial collection. Calcifications of the falx cerebri. Involutional changes with chronic microvascular ischemic disease. Right frontal lobe encephalomalacia with cortical calcifications. The calvarium is intact. Minimal mucosal thickening of the ethmoid air cells. Prior bilateral lens repair. Trace mastoid effusions. IMPRESSION: 1. No acute intracranial abnormality or calvarial fracture. 2. Involutional changes with chronic microvascular ischemic disease. 3. Right frontal lobe encephalomalacia. ACT 112: Negative or not required by law. The above report was generated using voice recognition software. It may contain grammatical, syntax or spelling errors. Electronically signed by: Mert Andrea M.D. 06/27/2023 3:15 PM
--- NOTE | 2023-06-28 15:07 | Anesthesiology Consultation ---
Date of Service June 28, 2023 History Surgery Operation Date: 06/28/23 16:45 Proposed Procedures p Esophagogastroduodenoscopy Dr. Mullins - Zunilda Mullins Jr, MD Height/Weight Height: 6 ft 1 in Weight: 94 kg Allergies Allergy/AdvReac Type Severity Reaction Status Date / Time No Known Allergies Allergy Verified 06/28/23 14:36 Medications Home Medications Medication Instructions Recorded Confirmed Last Taken bupropion HCl 300 mg 24 hr tablet, 300 mg PO QAM 12/02/22 06/27/23 06/27/23 extended release fluticasone propionate 50 1 spray intranasal DAILY 12/02/22 06/27/23 06/27/23 mcg/actuation nasal spray,suspension loratadine 10 mg tablet (Allergy 10 mg PO DAILY 12/02/22 06/27/23 06/27/23 Relief (loratadine)) methylphenidate HCl 5 mg tablet 5 mg PO BID 12/02/22 06/27/23 06/27/23 metoprolol tartrate 50 mg tablet 50 mg PO BID 12/02/22 06/27/23 06/27/23 omega 8-njk-iic-fish oil 1,000 mg 1 cap PO DAILY 12/02/22 06/27/23 06/27/23 (120 mg-180 mg) capsule (Fish Oil) potassium chloride 20 mEq 20 meq PO DAILY 12/02/22 06/27/23 06/27/23 tablet,extended release sertraline 100 mg tablet 100 mg PO DAILY 12/02/22 06/27/23 06/27/23 simvastatin 40 mg tablet 40 mg PO QPM 12/02/22 06/27/23 06/26/23 tadalafil 20 mg tablet 20 mg PO DAILY PRN Sexual Activity 12/02/22 06/27/23 Unknown Active Medications Generic Name Dose Route Start Last Admin Trade Name Freq PRN Reason Stop Dose Admin Bupropion HCl 300 mg 06/28/23 09:00 06/28/23 08:37 Bupropion Xl 300 Mg Tabcr PO 07/28/23 08:59 300 mg QAM RAJAN Administration Fluticasone Propionate 1 sprays 06/28/23 09:00 06/28/23 08:40 Fluticasone Propionate Na Spr 16 Gm Btl NA 07/28/23 08:59 Not Given DAILY RAJAN Lactated Ringer's 1,000 mls @ 80 mls/hr 06/27/23 20:30 06/28/23 08:39 Lr IV 06/29/23 09:59 80 mls/hr .[id number] RAJAN Administration Pantoprazole Sodium 40 mg/ 10 mls @ 5 mls/min 06/28/23 11:00 06/28/23 11:31 Syringe IV 07/28/23 10:59 5 mls/min DAILY@1100 RAJAN Administration Famotidine 20 mg in 5 mls @ 2.5 mls/min 06/28/23 09:00 06/28/23 08:44 Pepcid 20mg Iv Push IV 07/28/23 08:59 2.5 mls/min Q12H RAJAN Administration Loratadine 10 mg 06/28/23 09:00 06/28/23 08:37 Loratadine 10 Mg Tab PO 07/28/23 08:59 10 mg DAILY RAJAN Administration Methylphenidate HCl 5 mg 06/27/23 21:22 06/28/23 08:44 Methylphenidate Hcl 5 Mg Tablet PO 07/11/23 21:21 5 mg BID RAJAN Administration Metoprolol Tartrate 50 mg 06/27/23 21:22 06/28/23 08:38 Metoprolol Tartrate 50 Mg Tab PO 07/27/23 21:21 Not Given BID RAJAN Potassium Chloride 20 meq 06/28/23 09:00 06/28/23 08:37 Potassium Chloride Crtab 20 Meq Tabcr PO 07/28/23 08:59 20 meq DAILY RAJAN Administration Sertraline HCl 100 mg 06/28/23 09:00 06/28/23 08:37 Sertraline Hcl 100 Mg Tablet PO 07/28/23 08:59 100 mg DAILY RAJAN Administration Simvastatin 40 mg 06/27/23 21:22 06/27/23 23:05 Simvastatin 40 Mg Tab PO 07/27/23 21:21 40 mg QPM RAJAN Administration NPO Date Last Intake of Fluids: 06/28/23 Time Last Intake of Fluids: 12:30 Last Intake of Fluids Comment: sip Date Last Intake of Solids: 06/27/23 Time Last Intake of Solids: 07:00 Social History Smoking Status: Never smoker Hx Alcohol Use: No Hx Substance Use: No Physical Exam Vital Signs Last Vital Signs Temp 35.8 C L 06/28/23 14:31 Pulse 51 L 06/28/23 14:31 Resp 16 06/28/23 14:31 BP 150/80 H 06/28/23 14:31 Pulse Ox 96 06/28/23 14:31 O2 Del Method Room Air 06/28/23 14:31 Testing Laboratory Results 06/28/23 08:42 06/28/23 08:42 Urine Color Yellow 06/27/23 16:05 Urine Appearance Clear (Clear) 06/27/23 16:05 Urine pH 5.5 (4.5-7.5) 06/27/23 16:05 Ur Specific [place] > 1.045 (1.000-1.030) H 06/27/23 16:05 Urine Protein Negative (Negative) 06/27/23 16:05 Urine Glucose (UA) Negative (Negative) 06/27/23 16:05 Urine Ketones Negative (Negative) 06/27/23 16:05 Urine Nitrite Negative (Negative) 06/27/23 16:05 Ur Leukocyte Esterase Negative (Negative) 06/27/23 16:05 06/28/23 06/28/23 06/28/23 11:47 07:48 06:32 POC Glucose 78 83 82
--- NOTE | 2023-06-28 15:23 | GI REPORT ---
Patient Name: Corey Najera Procedure Date: 06/28/2023 3:11 PM Date of : 1955 Admit Type: Inpatient Age: 67 Gender: Male Attending MD: Zunilda Mullins MD, Procedure: Upper GI endoscopy Providers: Zunilda Mullins MD Referring MD: Campbell Mc Indications: Abnormal CT of the GI tract Medicines: Propofol per Anesthesia Complications: No immediate complications. Estimated Blood Loss: Estimated blood loss: none. Procedure: Pre-Anesthesia Assessment: - Prior to the procedure, a History and Physical was performed, and patient medications and allergies were reviewed. The patient's tolerance of previous anesthesia was also reviewed. The risks and benefits of the procedure and the sedation options and risks were discussed with the patient. All questions were answered, and informed consent was obtained. Prior Anticoagulants: The patient has taken no anticoagulant or antiplatelet agents. ASA Grade Assessment: III - A patient with severe systemic disease. After reviewing the risks and benefits, the patient was deemed in satisfactory condition to undergo the procedure. After obtaining informed consent, the endoscope was passed under direct vision. Throughout the procedure, the patient's blood pressure, pulse, and oxygen saturations were monitored continuously. The Scope was introduced through the mouth, and advanced to the second part of duodenum. The upper GI endoscopy was accomplished without difficulty. The patient tolerated the procedure well. Findings: LA Grade D (one or more mucosal breaks involving at least 75% of esophageal circumference) esophagitis with no bleeding was found 30 to 40 cm from the incisors. The stomach was normal. The examined duodenum was normal. Impression: - LA Grade D reflux esophagitis with no bleeding. - Normal stomach. - Normal examined duodenum. - No specimens collected. Recommendation: - [facility]. Zunilda Mullins MD 06/28/2023 3:23:27 PM Note Initiated On: 06/28/2023 3:11 PM Number of Addenda: 0 I attest to the content of the Intraoperative Record and orders documented therein, exceptions below {[id number]}
--- NOTE | 2023-06-28 16:33 | Anesthesiology Progress Note ---
Date of Service June 28, 2023 Anesthesia Post Procedure Vital Signs Vital Signs: Temp Pulse Pulse Resp BP BP Pulse Ox 06/28/23 16:23 36.3 C L 50 L 16 132/70 96 06/28/23 15:58 52 L 16 128/78 96 06/28/23 15:43 54 L 16 125/69 94 06/28/23 15:28 52 L 16 128/70 94 06/28/23 14:31 35.8 C L 51 L 16 150/80 H 96 06/28/23 08:00 06/28/23 07:33 36.3 C L 50 L 16 124/65 96 06/27/23 21:23 36.6 C 101 H 16 148/95 H 96 06/27/23 19:30 56 L 21 145/83 H 06/27/23 19:00 54 L 18 144/123 H 06/27/23 18:33 54 L 06/27/23 18:30 57 L 18 135/85 06/27/23 18:00 53 L 12 128/80 06/27/23 17:30 55 L 17 121/87 06/27/23 17:00 58 L 19 130/87 O2 Del Method 06/28/23 16:23 Room Air 06/28/23 15:58 Room Air 06/28/23 15:43 Room Air 06/28/23 15:28 Room Air 06/28/23 14:31 Room Air 06/28/23 08:00 Room Air 06/28/23 07:33 Room Air 06/27/23 21:23 Room Air 06/27/23 19:30 06/27/23 19:00 06/27/23 18:33 06/27/23 18:30 06/27/23 18:00 06/27/23 17:30 06/27/23 17:00 Transfer of Care Handoff Completed per policy Notes Mental Status: alert / awake / arousable and participated in evaluation Nausea / Vomiting: adequately controlled Pain: adequately controlled Airway Patency, RR, SpO2: stable & adequate BP & HR: stable & adequate Hydration State: stable & adequate Anesthetic Complications: no major complications apparent and Pt Satisfied with anesthetic care
[2023-06-28] MEDS: PROPOFOL IV EMULSION 10 MG/ML 20 ML VIAL IV ONE (16:36)
[2023-06-28] MEDS: LIDOCAINE 2% 2 ML VIAL/AMP(20MG/ML) INFIL ONE (16:36)
[2023-06-29 06:25] LABS: Basophils # (auto) 0.04 K/uL (0.00-0.20); Basophils % (auto) 0.7 %; Eosinophils # (auto) 0.35 K/uL (0.00-0.50); Eosinophils % (auto) 6.5 %; Hematocrit (blood only) 37.9 % (42.0-52.0); Hemoglobin 12.9 g/dl (14.0-18.0); Immature Granulocytes # (auto) 0.02 K/uL (0.01-0.20); Immature Granulocytes % (auto) 0.4 %; Lymphocytes # (auto) 1.48 K/uL (1.20-3.40); Lymphocytes % (auto) 27.4 %; Mean Corpuscular Hemoglobin 28.9 pg (25.0-34.0); Mean Corpuscular Volume 84.8 fL (80.0-100.0); Mean Platelet Volume 9.8 fL (9.4-12.4); Monocytes # (auto) 0.69 K/uL (0.11-0.59); Monocytes % (auto) 12.8 %; Neutrophils # (auto) 2.83 K/uL (1.40-6.50); Neutrophils % (auto) 52.2 %; Platelet Count 176 K/uL (130-400); RDW Coefficient of Variation 12.4 % (11.5-14.5); RDW Standard Deviation 38.2 fL (36.4-46.3); Red Blood Count 4.47 M/uL (4.70-6.10); White Blood Count 5.41 K/ul (4.8-10.8)
[2023-06-29 06:41] LABS: BUN Creatinine Ratio 12.7 (10-20); Creatinine Clr Calc Pharmacy 68.7 ml/min; Est GFR (African American) 73.6 ml/min; Est GFR (Non-African American) 63.5 ml/min; Potassium 4.4 mmol/L (3.5-5.1)
--- NOTE | 2023-06-29 16:06 | Hospitalist Progress Note ---
Date of Service June 29, 2023 Assessment & Plan (1) Esophagitis: Plan: -1.5 weeks of epigastric pain with vomiting. reports taking pepto bismol occasionally -CT A&P and chest with evidence of distal esophagitis. . -Consulted GI, appreciate recommendations - EGD: LA Grade D reflux esophagitis with no bleeding - discharge home with PPI - switched meds to PO carafate and PPI - will plan to d/c on these as well, rx sent on 06/[address] [facility] pharmacy and meds have to be shipped to his house, and he does not have access to local pharmacy. Tolerating full diet (2) Generalized weakness: Plan: -Patient with ataxia for which he has brought up with the MA. -CT head without any acute abnormalities, involutional changes with chronic microvascular ischemic disease, R frontal lobe encephalomalacia (3) ADHD: Plan: -Continue home methylphenidate (4) HTN (hypertension): Plan: -continue home metoprolol tartrate 50mg BID. (5) HLD (hyperlipidemia): Plan: Continue home simvastatin (6) Depression: Plan: -Continue home bupropion and sertraline. (7) Kidney stone: Plan: 7mm Left sided stone - seen on CT - patient made aware, asymptomatic Plan DVT Prophylaxis: SCDs dispo: stable for discharge but pending transportation home. Admission and Anticipated Discharge Date Admission Date: June 27, 2023 Supervising Physician Co-Signing Physician Notes Attending Attestation - Pt seen & examined, chart reviewed, care plan d/w FLORES Dahl. I agree w/ the hernandes components of her documentation. EGD from yesterday with severe esophagitis but w/o active bleeding. During my visit he denies any reflux symptoms, abd pain, nausea or emesis. Tolerating diet. Interestingly, despite his EGD findings, he denies chronic GERD symptoms. Cont PPI. Although he is fit for discharge home he does not have transportation. Social work involved to assist with this. Discharge exam - gen - NAD mouth - MMM heart - RRR, s1 s2, no murmur lungs - CTA b/l abd - soft NT ND BS+ ext - no edema, pulses 2+ b/l Campbell Mc MD Subjective patient seen sitting up in bed. Reports tolerating breakfast without any issue. Discussed findings of EGD and likely uncontrolled heartburn/GERD. Discussed foods to avoid. Patient from [facility], [place], operated by [facility] and does not drive and does not have any pharmacy or friends that can drive. will need transportation for discharge Review of Systems Review of Systems: All systems reviewed & are unremarkable except as noted in Subjective Physical Exam Physical Exam: General: NAD, VS as above Resp: normal respiratory effort, lungs clear to auscultation CV: RRR, no murmur, Abd: normal bowel sounds, non tender, no hepatosplenomegaly Extremities: Moves all extremities, no edema Neuro: A&O x3, Results & Data Results & Data Vital Signs (Past 12 Hours) Vital Signs Temp Pulse Resp BP Pulse Ox O2 Del Method 06/29/23 13:59 36.8 C 67 16 110/62 96 Room Air 06/29/23 07:47 36.8 C 55 L 16 157/84 H 93 Room Air Laboratory Results CBC and chemistry reviewed PG Care Time/CCT Total # of Minutes Spent Total Time Spent with Patient: Total time spent is greater than 50% in coordination of care (as documented) at patient's floor/unit and/or counseling patient: Coding Level of Care Code 51164 SUB INP/OBS CARE 2/35MIN Diagnoses Esophagitis K20.90 Generalized weakness R53.1 ADHD F90.9 HTN (hypertension) I10 HLD (hyperlipidemia) E78.5 Depression F32.A Kidney stone N20.0
[2023-06-29] MEDS: POLYETHYLENE (MIRALAX) 17 GM PACK PO PRN (16:09)
[2023-06-29] MEDS: SUCRALFATE 1 GM/10 ML UDC PO SCH (16:54)
[2023-06-30] MEDS ORDERED: PANTOprazole 40 MG TAB PO SCH
--- NOTE | 2023-06-30 05:39 | Electrocardiogram Report ---
Test Reason : Blood Pressure : / mmHG Vent. Rate : 063 BPM Atrial Rate : 063 BPM P-R Int : 222 ms QRS Dur : 084 ms QT Int : 408 ms P-R-T Axes : 018 -08 017 degrees QTc Int : 417 ms Sinus rhythm with 1st degree A-V block Septal infarct , age undetermined Abnormal ECG No previous ECGs available Confirmed by Hans Miller ([id number]) on 06/30/2023 5:39:04 AM Referred By: Confirmed By:Hans Miller
[2023-06-30] MEDS: PANTOprazole 40 MG TAB PO SCH (08:03)
--- NOTE | 2023-06-30 11:24 | Discharge Summary ---
Discharge Summary Date of Service June 30, 2023 Notes For Next Care Provider hospitalized with abdominal pain found to be esophagitis, underwent EGD showing grade D reflux esophagitis. Discharged home with PPI and one week of carafate. incidental finding of kidney stone on CT - patient asymptomatic Medication Changes From Visit Protonix 40mg daily carfate QID x 7 days Admission HPI Per Admitting Provider Corey is a 67 year old male w/ past medical history of gastritis, ADHD, HTN, HLD, hypertensive retinopathy, asthma, depressive, narcolepsy, prediabetes coming in for 1.5 weeks of epigastric pain. Patient states that over the past 1.5 weeks he has had epigastric pain that started as intense 7/10 pain along with NBNB vomiting every day and most meals. He states that the pain did not radiate and was a pressure type pain. He eventually got used to the pain as the week went on and has not had as much vomiting. He last vomited on Monday and was okay over the weekend. He states that his was concerned with the progression of symptoms and implored him to get checked out and so he came to the ER. He denies any fevers, chills, shortness of breath, diarrhea, constipation, any prior GI issues other than gastritis. In the ER CBC, CMP, lipase, U/A negative. CT head without acute process, involutional changes with chronic microvascular ischemic disease, R frontal lobe encephalomalacia. CT Chest mild to moderate circumferential thickening of distal esophagus. CT A&P suggestive of distal esophagitis, colonic diverticulosis, L nephrolithiasis. Given pantoprazole 40mg IV, famotidine 20mg IV, Zofran IV, NSS 500ml. Principal Dx & Hospital Course #1 = Principal Diagnosis (1) Esophagitis: -1.5 weeks of epigastric pain with vomiting. reports taking pepto bismol occasionally -CT A&P and chest with evidence of distal esophagitis. . -Consulted GI, appreciate recommendations - EGD: LA Grade D reflux esophagitis with no bleeding D/c home with Protonix and Carafate - [facility] [place], meds order there 06/28 to be shipped to his house, he expects they will arrive monday or monday - 3 days supply of protonix dispensed from our pharmacy to cover for the weekend Tolerating full diet (2) Generalized weakness: -Patient with ataxia for which [facility]. -CT head without any acute abnormalities, involutional changes with chronic microvascular ischemic disease, R frontal lobe encephalomalacia No further reported weakness at discharge (3) ADHD: -Continue home methylphenidate (4) HTN (hypertension): -continue home metoprolol tartrate 50mg BID. (5) HLD (hyperlipidemia): Continue home simvastatin (6) Depression: -Continue home bupropion and sertraline. (7) Kidney stone: 7mm Left sided stone - seen on CT recommend outpatient follow up Plan Dispo: discharge to home Discharge Exam General: NAD, VS as above Resp: normal respiratory effort, lungs clear to auscultation CV: RRR, no murmur, Abd: normal bowel sounds, non tender, no hepatosplenomegaly Extremities: Moves all extremities, no edema Neuro: A&O x3, Updated Medication List Medication Instructions Recorded Confirmed Type bupropion HCl 300 mg 24 hr tablet, 300 mg PO QAM 12/02/22 06/27/23 History extended release fluticasone propionate 50 1 spray intranasal DAILY 12/02/22 06/27/23 History mcg/actuation nasal spray,suspension loratadine 10 mg tablet (Allergy 10 mg PO DAILY 12/02/22 06/27/23 History Relief (loratadine)) methylphenidate HCl 5 mg tablet 5 mg PO BID 12/02/22 06/27/23 History metoprolol tartrate 50 mg tablet 50 mg PO BID 12/02/22 06/27/23 History omega 9-lmt-onz-fish oil 1,000 mg 1 cap PO DAILY 12/02/22 06/27/23 History (120 mg-180 mg) capsule (Fish Oil) potassium chloride 20 mEq 20 meq PO DAILY 12/02/22 06/27/23 History tablet,extended release sertraline 100 mg tablet 100 mg PO DAILY 12/02/22 06/27/23 History simvastatin 40 mg tablet 40 mg PO QPM 12/02/22 06/27/23 History tadalafil 20 mg tablet 20 mg PO DAILY PRN Sexual Activity 12/02/22 06/27/23 History pantoprazole 40 mg tablet,delayed 40 mg PO DAILY #30 tabs 06/29/23 Rx release (Protonix) sucralfate 1 gram tablet (Carafate) 1 g PO ACHS 7 days #28 tabs 06/29/23 Rx sucralfate 100 mg/mL oral 1 g (10 mL) PO ACHS 7 days #70 mL 06/29/23 Rx suspension (Carafate) Hospital Stay Data Consultations 06/27/23 17:51 ED Decision to Admit Stat 06/27/23 21:22 Consult Gastroenterology Routine Procedures Performed Operation Date: 06/28/23 16:45 Actual Procedures p Esophagogastroduodenoscopy - Zunilda Mullins Jr, MD Diagnostic Imagining Performed Abdomen/Pelvis CT 06/27/23 14:[address] WITH IV CONTRAST CT DOSE: 3284.72 mGy.cm HISTORY: Acute epigastric abdominal pain with nausea and vomiting epigastric pain w eating, vomiting after food TECHNIQUE: Multiaxial CT images of the abdomen and pelvis were performed following the IV administration of 91 cc of Optiray, A dose lowering technique was utilized adhering to the principles of ALARA. COMPARISON STUDY: Chest CT of same day FINDINGS: Coronary artery calcifications. [id number]-[id number] distal esophageal wall thickening with adjacent inflammatory stranding and subcentimeter lymph nodes. Mild bibasilar atelectasis versus scarring. No free air. Unremarkable spleen, pancreas and adrenal glands. The gallbladder and liver appear unremarkable. Patency of the hepatic and portal veins. No hydronephrosis. There are a few scattered bilateral renal cysts. 7 mm nonobstructing calculus of the inferior pole left kidney. No ureteral calculi or hydronephrosis. Prostatomegaly. Decompressed urinary bladder with wall thickening. Small fat filled left greater than right inguinal hernias with probable bilateral varicoceles. No abdominal aortic aneurysm or pathologically enlarged lymph nodes. No bowel obstruction or bowel wall thickening. Colonic diverticulosis. Mild to moderate colonic fecal retention. Normal appendix. Tiny fat filled umbilical hernia. Multilevel annular disc bulging of the lumbar spine with associated central canal and neural foraminal narrowing. No acute fracture. IMPRESSION: 1. Findings suggestive of distal esophagitis. Correlation with GI consult and endoscopy recommended. 2. No bowel obstruction or bowel wall thickening. 3. Colonic diverticulosis. 4. Left nephrolithiasis. 5. Additional findings as above. ACT 112: Negative or not required by law. The above report was generated using voice recognition software. It may contain grammatical, syntax or spelling errors. Electronically signed by: Mert Andrea M.D. 06/27/2023 3:[address] 06/27/23 14:[address] WITH CONTRAST CT DOSE: HISTORY: epigastric pain w eating, vomiting after food TECHNIQUE: Multiaxial CT images of the chest were performed following the intravenous administration of contrast. A dose lowering technique was utilized adhering to the principles of ALARA. COMPARISON: None. FINDINGS: The thyroid gland enhances normally. Normal caliber thoracic aorta wit h no evidence for a dissection. The central pulmonary arteries are patent. The heart is normal in size. Mild coronary artery calcifications are noted. No pleural or pericardial effusions. The abdominal structures will be reported on the same day abdomen and pelvis CT. There is mild to moderate circumferential thickening of the distal esophagus. No paraesophageal lymphadenopathy identified. Subcentimeter mediastinal and bilateral hilar lymph nodes do not meet CT criteria for pathologic involvement. No suspicious lytic or blastic osseous lesions. No evidence for pneumomediastinum. No pneumothorax. The central airways are patent. Mild dependent changes seen within the lung bases. Otherwise, no focal lung consolidations to suggest a pneumonia. No evidence for pulmonary edema. IMPRESSION: Mild to moderate circumferential thickening of the distal esophagus. This favors an esophagitis. Follow-up nonemergent endoscopy recommended for confirmation. ACT 112: Negative or not required by law. Electronically signed by: Farhad Sargent M.D. 06/27/2023 3:[address] 06/27/23 14:22 CT head/brain wo con CLINICAL HISTORY: 67 years-old Male with recent falls, weakness. Acute head trauma status post fall TECHNIQUE: Multiple axial CT images of the head were obtained without contrast. A dose lowering technique was utilized adhering to the principles of ALARA. COMPARISON: None. FINDINGS: No acute intracranial hemorrhage, midline shift, intracranial mass, hydrocephalus, territorial ischemia or abnormal extra-axial collection. Calcific ations of the falx cerebri. Involutional changes with chronic microvascular ischemic disease. Right frontal lobe encephalomalacia with cortical calcifications. The calvarium is intact. Minimal mucosal thickening of the ethmoid air cells. Prior bilateral lens repair. Trace mastoid effusions. IMPRESSION: 1. No acute intracranial abnormality or calvarial fracture. 2. Involutional changes with chronic microvascular ischemic disease. 3. Right frontal lobe encephalomalacia. ACT 112: Negative or not required by law. The above report was generated using voice recognition software. It may contain grammatical, syntax or spelling errors. Electronically signed by: Mert Andrea M.D. 06/27/2023 3:15 PM Pending Results Patient Have Any Pending Studies at Discharge: No Discharge Instructions Given to Patient (Per Discharging Provider) Mr. Najera, You were hospitalized after having abdominal pain. You were found to have esophagitis which is inflammation of your esophagus. You had an EGD done with Dr. Mullins that showed esophagitis due to reflux. As we discussed you will need to take medications to help control your stomach acid. This includes: - Protonix 40mg Every morning 30-60 minutes before breakfast. You will have three doses from our pharmacy and then more will be arriving from the [place] [facility] - Carafate 4 times a day for one week. this will be arriving from the [place] [facility]. I have attached information of GERD and foods to avoids. As we discussed highly acidic foods and spicy foods can trigger heartburn. It is also important to not lay down for 30-60 minutes after eating. Do NOT take NSAIDs - ibuprofen, aleve, naproxen, etc. It is OKAY to take tylenol. Do NOT smoke or drink alcohol. As a reminder we found a kidney stone on your CT scan. Currently is not causing any issues but something to be aware of. ---- Take your medications as instructed; do not skip a dose of your medicines. Make sure all of your doctors know every medicine you are taking (including zhbk-jxa-qaprtey medicines, vitamins, and supplements). Call your primary care provider before taking any new medicines (including over- the-counter medicines, vitamins, and supplements), because some of these may interact with your current medications, or may make your symptoms worse. Tell your primary care provider if you cannot afford your medications. Activity: You can do normal everyday activities as your body allows. Take rest breaks if you feel tired. Do not overexert. Stop activity if you have pain, shortness of breath or feel dizzy. Follow-up appointments: Make an appointment with your primary care physician within one week of discharge. A copy of this summary will be sent to them. Every time you see your primary care physician, or any other doctor, bring your medication list, and a list of questions. CONTACT YOUR PRIMARY CARE PROVIDER if you experience any of the following: Shortness of breath or difficulty breathing Fevers or chills Feeling tired with normal activity or experiencing dizziness or fainting Difficulty following your treatment plan, or difficulty taking medications CALL 911 OR GO TO THE EMERGENCY DEPARTMENT if you experience any of the following: Severe abdominal pain or nausea/vomiting Severe chest pain, or chest pain that radiates (moves) to your jaw or arm Sudden, severe shortness of breath or difficulty breathing Thank you for allowing us to participate in your care. Total Time Total Time Spent Total Time Spent (In Minutes): Time spend day of discharge 35 minutes including direct patient care, medication reconciliation, documentation, review of labs and images, and coordination of care. Supervising Physician Co-Signing Physician Notes Attending Attestation and Discharge Note: Chart reviewed, discharge care plan d/w FLORES Dahl. I agree w/ the hernandes components of her documentation. I did not perform a bedside visit or physical exam on day of discharge home - performed such <24 hours ago on 06/29/23. Briefly - 67yo male who presented with severe epigastric pain with vomiting x 1.[address] a/p with distal esophageal inflammation. Se[facility] - underwent EGD - severe esophagitis found. Symptoms improved with IV PPI. Will d/c to home with oral PPI and short course of carafate. Advised to avoid NSAIDs and alcohol. Consider repeat EGD in a few months to check healing and to perform bx for Rai's esophagus. Campbell Mc MD Coding Level of Care Code 58662 INP/OBS DISCH >30 MIN Diagnoses Esophagitis K20.90 Generalized weakness R53.1 ADHD F90.9 HTN (hypertension) I10 HLD (hyperlipidemia) E78.5 Depression F32.A Kidney stone N20.0
== END 2023-06-30 12:36 | disposition home or self-care (01) | DRG 392 ==
LOC: ED 12:09 → 3W 12:09 → SUATTDRO 19:09 → 3W 22:14